=== PATIENT | female | born 1995 | race Caucasian/White ===

== ENCOUNTER 2016-05-15 00:24 | Emergency (ER) | payer OTHER ==
[~2016-05-15] VITALS: Ht 30.5 cm; Wt 48.6 kg
[2016-05-15 00:38] VITALS: TEMP 36.5; Ht 30.5 cm; Wt 48.6 kg
[2016-05-15 01:17] VITALS: O2SAT 97
[2016-05-15 02:18] LABS: BLOOD UREA NITROGEN 11 mg/dl (7-18); BUN/CREATININE RATIO 17.9 (10-20); CALCIUM 8.6 mg/dl (8.5-10.1); CARBON DIOXIDE 24 mmol/L (21-32); CHLORIDE 108 mmol/L (98-107); CREATININE 0.59 mg/dl (0.60-1.20); GLUCOSE 97 mg/dl (70-99); POTASSIUM 3.3 mmol/L (3.5-5.1); SODIUM 144 mmol/L (136-145)
[2016-05-15] MEDS ORDERED: POTASSIUM CHLORIDE 10 MEQ TABCR PO STA (05:05)
[2016-05-15 05:41] LABS: BENZODIAZEPINE, URINE NEG (NEG); COCAINE,URINE NEG (NEG); PHENCYCLIDINE, URINE NEG (NEG)
[2016-05-15] MEDS ORDERED: POTASSIUM CHLORIDE 10 MEQ TABCR ONE (07:49)
[2016-05-15 09:10] VITALS: BP 125/85; PULSE 115; O2SAT 93
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
== END 2016-05-15 09:27 | disposition home or self-care (01) ==
LOC: C.EDA 00:27
DX: F10.129 Alcohol abuse with intoxication, unspecified (principal); E87.6 Hypokalemia; Y90.8 Blood alcohol level of 240 mg/100 ml or more